=== PATIENT | male | born 1955 | race Caucasian/White ===

== ENCOUNTER → 2020-12-22 | Outpatient (CLI) | payer MEDICARE, OTHER ==
[~2020-12-22] MED LIST: ADVAIR HFA 115/1 INH INH; ASPIRIN CHEWABL81 MG PO; ATROVENT-HFA12.9 GM INH; AVODART 0.5 MG0.5 MG PO; CALCIUM500 MG PO; ENTRESTO PO; FLEXERIL 10 MG10 MG PO; FLOMAX 0.4 MG0.4 MG PO; GABAPENTIN800 MG PO; INCRUSE ELLI62.5 MCG INH; LEVAQUIN500 MG PO; LIPITOR TAB 2020 MG PO; LORCET 5-325 M1 EACH PO; MELATONIN10 M2 PO; MELOXICAM7.5 MG PO; METOPROLOL TART25 MG PO; MOBIC15 MG PO; NEURONTIN 300300 MG PO; NITRO-TIME6.5 MG PO; NITROSTAT0.4 MG SL; NORCO 10-325 T1 EACH PO; PLAVIX 75 MG TA75 MG PO; PRINIVIL5 MG PO; PROTONIX40 MG PO; RANITIDINE HCL300 MG PO; TYLENOL W/CODEIN1 E1 PO; VENTOLIN HFA 66.7 GM INH; VENTOLIN/PROVE0.5 ML INH; VITAMIN D250000 UNIT PO
== END ==
LOC: KOH-I 12-06 13:00
DX: R91.1 Solitary pulmonary nodule (principal); R91.8 Other nonspecific abnormal finding of lung field
CPT/HCPCS: 71250

== ENCOUNTER → 2021-02-10 | Outpatient (CLI) | payer MEDICARE, OTHER | LOC: RAD 13:28 | DX: Z48.813 Encounter for surgical aftercare following surgery on the respiratory system (principal); Z98.890 Other specified postprocedural states | CPT/HCPCS: 71046 ==

== ENCOUNTER 2021-02-11 19:06 | Emergency (ER) | payer MEDICARE, OTHER ==
[2021-02-11 21:06] LABS: HEMOGLOBIN 16.5 gm/dl (14.0-17.5); RED BLOOD COUNT 5.15 M/UL (4.20-5.50); WHITE BLOOD COUNT 10.5 K/UL (4.5-11.0)
[2021-02-11 21:23] LABS: BUN/CREATININE RATIO 21 (0-10)
== END 2021-02-11 22:45 | disposition home or self-care (01) ==
LOC: ER1 19:06
PROVIDERS: Physician Assistant Medical
DX: J95.811 Postprocedural pneumothorax (principal); I25.10 Atherosclerotic heart disease of native coronary artery without angina pectoris; Z87.891 Personal history of nicotine dependence
CPT/HCPCS: 71046; 80053; 85025; 99283

== ENCOUNTER → 2021-02-21 | Outpatient (CLI) | payer MEDICARE, OTHER | LOC: RAD 09:44 | DX: Z00.00 Encounter for general adult medical examination without abnormal findings (principal); Z98.3 Post therapeutic collapse of lung status | CPT/HCPCS: 71046 ==

== ENCOUNTER → 2021-04-06 | Outpatient (CLI) | payer MEDICARE, OTHER | LOC: CT 10:15 | DX: C34.31 Malignant neoplasm of lower lobe, right bronchus or lung (principal); J90 Pleural effusion, not elsewhere classified; R91.8 Other nonspecific abnormal finding of lung field; I71.4 Abdominal aortic aneurysm, without rupture | CPT/HCPCS: 71260; Q9967 ==

== ENCOUNTER → 2021-07-04 | Outpatient (CLI) | payer MEDICARE, OTHER ==
[2021-07-04 14:48] LABS: HEMOGLOBIN 14.7 gm/dl (14.0-17.5); RED BLOOD COUNT 4.64 M/UL (4.20-5.50)
[2021-07-04 15:08] LABS: BUN/CREATININE RATIO 7 (0-10)
== END ==
LOC: CT 13:55
PROVIDERS: Internal Medicine Hematology & Oncology
DX: C34.31 Malignant neoplasm of lower lobe, right bronchus or lung (principal); I71.9 Aortic aneurysm of unspecified site, without rupture; Z98.890 Other specified postprocedural states
CPT/HCPCS: 36415; 71260; 80053; 83615; 85025; Q9967

== ENCOUNTER → 2021-08-31 | Outpatient (CLI) | payer MEDICARE, OTHER | LOC: KOH-I 14:19 | DX: N50.819 Testicular pain, unspecified (principal); N43.3 Hydrocele, unspecified | CPT/HCPCS: 76870 ==

== ENCOUNTER 2021-11-10 23:56 | Inpatient (IN) | payer MEDICARE, OTHER ==
[~2021-11-10] VITALS: Ht 180.3 cm; Wt 64.9 kg
[~2021-11-10 23:56] MED LIST changes: +LISINOPRIL10 MG PO; -NEURONTIN 300300 MG PO; +NEURONTIN300 MG PO; -PRINIVIL5 MG PO; +PROAIR HFA8.5 GM INH; -VENTOLIN HFA 66.7 GM INH
[2021-11-11 02:12] LABS: HEMOGLOBIN 14.9 gm/dl (14.0-17.5); RED BLOOD COUNT 4.71 M/UL (4.20-5.50); WHITE BLOOD COUNT 10.6 K/UL (4.5-11.0)
[2021-11-11 02:35] LABS: BUN/CREATININE RATIO 12 (0-10)
[2021-11-11] MEDS ORDERED: NORVASC5 MG PO (10:16)
[2021-11-11] MEDS ORDERED: METOPROLOL SUCC25 MG PO (10:17)
[2021-11-11] MEDS ORDERED: ADVAIR 250-501 EACH INH (10:17)
[2021-11-11] MEDS ORDERED: VIAGRA50 MG PO (10:18)
[2021-11-11] MEDS ORDERED: NICOTINE PATCH1 EAC5 TOP (10:18)
[2021-11-11] MEDS ORDERED: WELLBUTRIN SR150 MG PO (10:19)
[2021-11-13 15:58] LABS: BUN/CREATININE RATIO 13 (0-10)
[2021-11-14 02:51] LABS: BUN/CREATININE RATIO 12 (0-10)
[2021-11-14] MEDS ORDERED: ATORVASTATIN CA20 MG PO (09:36)
[2021-11-14] MEDS ORDERED: LOPRESSOR 25 MG25 MG PO (09:36)
[2021-11-14] MEDS ORDERED: AMIODARONE HCL200 MG PO (09:36)
== END 2021-11-14 12:15 | disposition home or self-care (01) | DRG 309 ==
LOC: ER1 23:56 → CDU 11-11 05:31 → PROG CARE 11-11 19:30
PROVIDERS: Internal Medicine Interventional Cardiology; Physician Assistant; ADMIT Internal Medicine
PROC: B24BZZZ Ultrasonography of Heart with Aorta (ICD-10-PCS; principal; 2021-11-11)
DX: I47.2 Ventricular tachycardia (principal); I42.9 Cardiomyopathy, unspecified; I50.22 Chronic systolic (congestive) heart failure; Z20.822 Contact with and (suspected) exposure to COVID-19; I11.0 Hypertensive heart disease with heart failure; I08.1 Rheumatic disorders of both mitral and tricuspid valves; J44.9 Chronic obstructive pulmonary disease, unspecified; I25.10 Atherosclerotic heart disease of native coronary artery without angina pectoris; I25.5 Ischemic cardiomyopathy; E78.5 Hyperlipidemia, unspecified; Z95.810 Presence of automatic (implantable) cardiac defibrillator; Z95.5 Presence of coronary angioplasty implant and graft; Z90.2 Acquired absence of lung [part of]; Z88.8 Allergy status to other drugs, medicaments and biological substances; Z88.6 Allergy status to analgesic agent; Z80.1 Family history of malignant neoplasm of trachea, bronchus and lung; Z80.0 Family history of malignant neoplasm of digestive organs; Z82.49 Family history of ischemic heart disease and other diseases of the circulatory system; I25.2 Old myocardial infarction; Z90.49 Acquired absence of other specified parts of digestive tract; Z72.89 Other problems related to lifestyle; Z85.038 Personal history of other malignant neoplasm of large intestine
CPT/HCPCS: ECHO; 36415; 71045; 80048; 80053; 81001; 82550; 82553; 83735; 83874; 83880; 84439; 84443; 84484; 85025; 85610; 85730; 93005; 93306; 96374; 96376; 99285; J1650; J2001

== ENCOUNTER → 2022-01-18 | Outpatient (CLI) | payer MEDICARE, OTHER ==
[~2022-01-18] MED LIST changes: +ADVAIR 250-501 EACH INH; +AMIODARONE HCL200 MG PO; +ATORVASTATIN CA20 MG PO; +LOPRESSOR 25 MG25 MG PO; +METOPROLOL SUCC25 MG PO; +NICOTINE PATCH1 EAC5 TOP; +NORVASC5 MG PO; +VIAGRA50 MG PO; +WELLBUTRIN SR150 MG PO
== END ==
LOC: HEART 5 14:14
DX: R06.02 Shortness of breath (principal); Z79.899 Other long term (current) drug therapy
CPT/HCPCS: 94060; 94729

== ENCOUNTER → 2022-02-14 | Outpatient (CLI) | payer MEDICARE, OTHER ==
[2022-02-14 13:48] LABS: HEMOGLOBIN 13.4 gm/dl (14.0-17.5); RED BLOOD COUNT 4.37 M/UL (4.20-5.50); WHITE BLOOD COUNT 9.9 K/UL (4.5-11.0)
[2022-02-14 14:11] LABS: BUN/CREATININE RATIO 11 (0-10)
== END ==
LOC: CT 13:00
PROVIDERS: Registered Nurse
DX: I20.9 Angina pectoris, unspecified (principal); I11.9 Hypertensive heart disease without heart failure; I43 Cardiomyopathy in diseases classified elsewhere; R06.02 Shortness of breath; I47.2 Ventricular tachycardia; Z79.899 Other long term (current) drug therapy
CPT/HCPCS: 36415; 71260; 80053; 83615; 85027; Q9967

== ENCOUNTER → 2022-02-23 | Outpatient (CLI) | payer MEDICARE, OTHER | LOC: CT 11:00 | DX: I71.4 Abdominal aortic aneurysm, without rupture (principal); N20.0 Calculus of kidney; D35.02 Benign neoplasm of left adrenal gland; D35.01 Benign neoplasm of right adrenal gland | CPT/HCPCS: Q9965 ==

== ENCOUNTER → 2022-04-17 | Outpatient (CLI) | payer MEDICARE, OTHER | LOC: KOH-I 09:00 | DX: N20.0 Calculus of kidney (principal); N43.3 Hydrocele, unspecified; N50.3 Cyst of epididymis | CPT/HCPCS: 76870 ==

== ENCOUNTER → 2022-06-08 | Outpatient (CLI) | payer MEDICARE, OTHER | LOC: KOH-I 08:58 | DX: N50.819 Testicular pain, unspecified (principal); N50.89 Other specified disorders of the male genital organs; N43.3 Hydrocele, unspecified | CPT/HCPCS: 76870 ==